=== PATIENT | female | born 1990 | race Caucasian/White ===

== ENCOUNTER → 2017-09-09 16:08 | Outpatient (CLI) | payer BC, SELFPAY ==
--- NOTE | 2017-09-09 | CER_PTH ---
PATIENT: JAMAAL PALACIOS [facility]: [facility] U#:[id number] AGE/SX: 34/F ROOM: RE09/09/[address]: Dr. Papa Blanc MD : 1990 BED: DIS: SPEC #: [id number] RECD: 09/09/17 16:00 STATUS: TONY ZHAO #: [id number] BARTOLO: 09/09/17 00:[address]: Papa lBanc DEPT: SURGICAL PATHOLOGY RECD BY: Waylon Doss Tissues: Uterine cervix, NOS Procedures: Surgery Specimen Level IV HEADER OPERATION: Colposcopy PRE-OP DIAGNOSIS: 06/24/17 ASCUS pap, HPV-HR positive, 24 weeks 3 days TISSUE SUBMITTED: Cervical biopsy 6 o?clock MICROSCOPIC DIAGNOSIS Cervix, 6 o?clock, biopsy: Focal minimal changes suspicious for HPV cytopathic effects. SJ:helen 09/11/17 COMMENT Immunohistochemistry ([id number]) for surrogate HPV marker (p16) supports the above diagnosis. Case has been reviewed in consultation with Dr. Bess who concurs with the above diagnosis. IDC:AM MICROSCOPIC DESCRIPTION Slides are reviewed. GROSS DESCRIPTION Received in fixative is one container labeled with the patient's name and designated cervical biopsy 6 o'clock. The specimen consists of one irregular fragment of light hines soft tissue that measures 0.4 x 0.4 x 0.2 cm. The specimen is totally submitted in one cassette. / SJ:rg 09/10/17 TC:5 CPT: 68414
--- NOTE | 2017-09-09 | IMM_PTH ---
PATIENT: JAMAAL PALACIOS LOC: [facility] U#:[id number] AGE/SX: 34/F ROOM: RE09/09/[address]: Dr. Papa Blanc MD : 1990 BED: DIS: SPEC #: [id number] RECD: 09/11/17 10:38 STATUS: TONY RELaura #: [id number] BARTOLO: 09/09/17 00:[address]: Papa Blanc DEPT: IMMUNOHISTOCHEMISTRY RECD BY: Cathleen Alegria ENTERED: 09/11/17 10:39 SP TYPE: IMMUNO OTHR DR: No Primary Care Phys Tissues: Uterine cervix, NOS Procedures: p16 (initial) KI-67 (add) PHYSICIAN & INSTITUTION [place] [id number] SPECIMEN INFORMATION: Tissue Source: Cervical biopsy at 6 o?clock Clinical Info: 06/24/17 ASCUS pap, HPV-HR positive, 24 weeks 3days Specimen Number: [id number] CPT code: 33152, 98730 METHODOLOGY: Deparaffinized sections of prefer/formalin-fixed tissue or PAP/DQ stained slides are incubated with monoclonal/polyclonal antibodies/oligonucleotide probes. Localization is made via biotin free immunoperoxidase method. Appropriate controls are performed and reacted as expected. Results on target cell population are indicated in the following table: RESULTS: ANTIBODY / CLONE RESULT P16 (E6H4) positive, focal and patchy Ki-67 (30-9) negative These tests were developed and their performance characteristics determined by [facility]. They may not have been cleared or approved by the U.S. Food and Drug Administration. The FDA has determined that such clearance or approval is not necessary. INTERPRETATION: Cervical biopsy at 6 o?clock: Focal changes suspicious for HPV cytopathic effects. SJ:helen 09/14/17
== END ==
PROVIDERS: Visit Provider Obstetrics & Gynecology
DX: O28.2 Abnormal cytological finding on antenatal screening of mother (principal); Z3A.24 24 weeks gestation of pregnancy
CPT/HCPCS: 88305; 88341; 88342

== ENCOUNTER → 2017-10-07 13:22 | Outpatient (CLI) | payer BC, SELFPAY ==
[2017-10-07 14:01] LABS: Mean Corp Hgb Conc 33.3 g/gl (32-36); Mean Corpuscular Hgb 32.1 pg (27.0-32.0); Mean Corpuscular Volume 96.2 fL (81-99); Mean Platelet Vol. 9.7 fl (6.2-12.0); Platelet Count 248 K/mm3 (150-450); RBC Distribution Width CV 13.1 % (11.6-14.6); RBC Distribution Width SD 45.3 fl (35.1-43.9); Red Blood Count 3.43 M/mm3 (4.2-5.4); White Blood Count 9.2 K/mm3 (4.4-11.0)
[2017-10-07 14:03] LABS: Scan Indicated on CBC? Y/N NO
[2017-10-07 14:23] LABS: Glucose Challenge Gest 1H 50g 113 mg/dL (70-140)
== END ==
LOC: WOBLAB 13:24
PROVIDERS: Visit Provider Obstetrics & Gynecology
DX: Z34.83 Encounter for supervision of other normal pregnancy, third trimester (principal)
CPT/HCPCS: 36415; 82950; 85027

== ENCOUNTER → 2017-12-02 17:52 | Outpatient (CLI) | payer BC, SELFPAY ==
[2017-12-02 19:43] LABS: Group B Strep DNA By PCR Negative (Negative); Internal Control PASS; Probe Check PASS; Specimen Processing Control PASS
== END ==
PROVIDERS: Visit Provider Obstetrics & Gynecology
DX: Z36.85 Encounter for antenatal screening for Streptococcus B (principal)
CPT/HCPCS: 87081; 87653

== ENCOUNTER → 2017-12-22 14:10 | Outpatient (CLI) | payer BC, SELFPAY ==
[2017-12-22 14:30] LABS: Hematocrit 36.1 % (37-47); Hemoglobin 12.4 g/dl (12.0-15.0); Mean Corp Hgb Conc 34.3 g/gl (32-36); Mean Corpuscular Hgb 32.1 pg (27.0-32.0); Mean Corpuscular Volume 93.5 fL (81-99); Mean Platelet Vol. 9.9 fl (6.2-12.0); Platelet Count 274 K/mm3 (150-450); RBC Distribution Width CV 12.7 % (11.6-14.6); RBC Distribution Width SD 43.1 fl (35.1-43.9); Red Blood Count 3.86 M/mm3 (4.2-5.4)
[2017-12-22 14:31] LABS: Scan Indicated on CBC? Y/N NO
[2017-12-22 14:36] LABS: International Normalized Ratio 0.9; Prothrombin Time (Protime)PT. 12.2 SECONDS (11.7-14.9)
[2017-12-22 14:37] LABS: Partial Thromboplast Time 26.4 Seconds (24.1-36.2)
[2017-12-22 14:50] LABS: AST(SGOT) 16 U/L (15-37); Alanine Aminotransfer ALT/SGPT 17 U/L (13-56); EST Glomerular Filtration Rate 157 mL/min (>60); Est Glom Filt Rate - Afr Amer 190 mL/min (>60)
== END ==
LOC: WOBLAB 14:11
PROVIDERS: Visit Provider Obstetrics & Gynecology
DX: O13.9 Gestational [pregnancy-induced] hypertension without significant proteinuria, unspecified trimester (principal); Z3A.00 Weeks of gestation of pregnancy not specified
CPT/HCPCS: 36415; 82565; 84450; 84460; 84550; 85027; 85610; 85730

== ENCOUNTER → 2017-12-24 10:52 | Outpatient (CLI) | payer BC, SELFPAY | PROVIDERS: Visit Provider Obstetrics & Gynecology | DX: O13.9 Gestational [pregnancy-induced] hypertension without significant proteinuria, unspecified trimester (principal); Z3A.00 Weeks of gestation of pregnancy not specified | CPT/HCPCS: 81050; 84156 ==

== ENCOUNTER 2018-01-04 07:45 | Inpatient (IN) | payer BC, SELFPAY ==
[2018-01-04] VITALS (18 sets, daily range): BP systolic 126–152; BP diastolic 77–97; PULSE 78–118; RESP 12–19; TEMP 36.6–37.4; O2SAT 95–100; BMI 33.5
[2018-01-04] MEDS: Lactated Ringers 1,000 ML 150 ML IV (08:32)
[2018-01-04] MEDS: Lactated Ringers 1,000 ML 50 ML IV ×3 (08:32→13:10)
[2018-01-04 08:46] LABS: Hematocrit 38.6 % (37-47); Hemoglobin 13.4 g/dl (12.0-15.0); Mean Corp Hgb Conc 34.7 g/gl (32-36); Mean Corpuscular Hgb 32.3 pg (27.0-32.0); Mean Platelet Vol. 10.5 fl (6.2-12.0); Platelet Count 329 K/mm3 (150-450); RBC Distribution Width CV 12.6 % (11.6-14.6); RBC Distribution Width SD 42.6 fl (35.1-43.9); Red Blood Count 4.15 M/mm3 (4.2-5.4); Scan Indicated on CBC? Y/N NO; White Blood Count 15.5 K/mm3 (4.4-11.0)
[2018-01-04] MEDS: Terbutaline 1 MG/ML Vial 0.25 MG SC (09:00)
[2018-01-04] MEDS: fentaNYL-bupivacaine (epidural) 100 ML BAG EPIDURAL (09:46)
[2018-01-04 10:07] LABS: Amphetamine Urine VISTA NEGATIVE (<1000 ng/mL); Barbiturate Urine VISTA POSITIVE (< 200 ng/mL); Benzodiazepine Urine VISTA NEGATIVE (< 200 ng/mL); Cocaine Urine VISTA NEGATIVE (< 300 ng/mL); Ecstacy Urine VISTA NEGATIVE (< 500 ng/mL); Methadone Urine VISTA NEGATIVE (< 300 ng/mL); PCP Urine VISTA NEGATIVE (< 25 ng/mL); THC Urine VISTA POSITIVE (< 50 ng/mL); Vista UDS pH Range 7
[2018-01-04] MEDS: Sodium Citrate/Citric Acid 30 ML UDC PO (13:10)
--- NOTE | 2018-01-04 13:16 | OP.PCM_ITS ---
Operative Report Date of Procedure: 01/04/18 Surgeon: Andrea Calhoun MD, FACOG Data Processing Control Clerk: GORDY Dumont Anesthesia: Doris Collins CRNA Anesthesia: Epidural with Duramorph Pre-op Diagnosis: -Increasing Stress, Postdate , Tobaccoism Post-Op Diagnosis: - -Increasing Stress, Postdate , Tobaccoism, Right Peritubal Cyst Procedure: Primary Low Transverse Cervical Caesarean Section Findings: Viable Male with Apgars of 8/9 in occiput anterior presentation with thick meconium stained amniotic fluid and normal three-vessel placenta with cord around the body, legs multiple times Indication: This is a 27-year-old who presents to labor and delivery in labor at 41+ weeks gestation. During her labor she has had multiple late decelerations on multiple occasions into the 50s. She is only about 3 cm dilated and has no prospect of delivering soon. care has otherwise been uneventful except the patient is a smoker. We discussed options with the patient and she desires that we proceed with section for increasing stress. The patient has been counseled regarding the risk and indications of this procedure including the possibility of bleeding infection and injury to surrounding structures such as bowel bladder. All questions were answered. Procedure: Patient was taken to the operating room where after spinal anesthesia was placed, the patient was prepped and draped in usual sterile fashion and a Gamboa catheter was placed. The abdomen was entered through a Pfannenstiel incision and peritoneum was entered bluntly. After developing a bladder flap on the lower uterine segment a low transverse incision was made on the uterus and head was easily delivered onto the operative field the nose mouth and oropharynx were bulb suctioned. Subsequently a viable male was born with Apgars of 8/9. The infant was noted to cry move all extremities vigorously on the operative field. The umbilical cord was doubly clamped and ligated and infant handed to the nursery personnel who were present for the delivery. Placenta was delivered and noted to be 3 vessels and normal except for thick meconium-stained fluid. Uterus was exteriorized and remaining placental tissue was removed. The uterus was then closed in 2 layers first with running locked 0 Vicryl suture followed by a second imbricating layer with 0 Vicryl suture. 0 Vicryl suture was then used in a horizontal mattress interrupted fashion to affect final hemostasis of the uterine incision line. Normal fallopian tubes and ovaries were visualized and the uterus was returned to the pelvis except for a 1 x 2 cm right peritubal cyst which was excised and sent to pathology. Hemostasis was noted and rectus abdominis muscles were reapproximated in the midline with interrupted Number 0 Vicryl suture in a horizontal mattress fashion. Fascia was closed with running Number 1 PDS Strata fix suture. Subcutaneous tissue was irrigated with copious amouts of saline solution and then closed with running 3-0 Vicryl suture. Skin was closed with 4-0 monocryl suture in a running subcuticular fashion. Steri strips , telfa, and tape were placed across the incision. The patient tolerated the procedure well and was taken to the recovery room in satisfactory condition. Sponge, needle, and instrument counts were all reportedly correct. EBL was less than 500 cc. Ancef 2 gms IV was given prior to the procedure. Spicemen to Pathology: Thick meconium stain placenta and right peritubal cyst for studies. Complications: None
--- NOTE | 2018-01-04 13:17 | DCINST_ITS ---
Discharge Diet: No Restrictions Discharge Activity: May not drive while taking narcotic pain medications., May Shower, May Take a Tub Bath May resume sexual activity in: 4-6 weeks Lifting Restrictions: 20 pounds Additional Activity Instructions:: Nothing in the vagina for 4-6 weeks. You may return to work/school in 6 weeks. Call your doctor if your incision/area has: Continuous Slow Oozing, Sudden Increased Bleeding, Increased Pain/ Swelling, Increased Redness, Foul Smelling Discharge Call your doctor if you observe: Fever of 101 or Higher, Inability to urinate, Inability to have a bowel movement, Using more than one pad per hour Additional Instructions: If you experience any of the following, contact your healthcare provider. * Bleeding that soaks a pad every hour for 2 hours * Unrelieved incision or abdominal pain * Swelling, redness, discharge or bleeding from your incision or episiotomy site * Your incision begins to separate * Problems urinating (including inability to urinate or burning while urinating) . * Visual changes * Severe headache * Flu-like symptoms * Pain or redness in one of both of your breasts * Pain, warmth, tenderness or swelling in your legs, especially the calf area * Frequent nausea and vomiting * Symptoms of depression or anxiety If you experience any of the following, call 911 or go to the nearest Emergency Room. * Chest pain * Problems breathing * Seizure activity * Partial or complete paralysis of a body part, slurred speech, weakness or drooping of the face, or a sudden inability to walk or hold your balance Allergies/Adverse Reactions: Allergies No Known Allergies Allergy (Verified 01/04/18 08:45) Medications to take at Discharge Acetaminophen/Butalbital/Caffe [Fioricet] 2 tablet PO Q4H PRN PRN 01/04/18 Docusate Sodium [Colace] 100 mg PO BID PRN PRN #60 cap 01/04/18 Ferrous Sulfate [Iron] 325 mg PO BID 01/04/18 Oxycodone [Oxyir] 5 mg PO Q6H PRN PRN 7 Days #20 tab 01/04/18 Vits [Prenatabs FA] 1 tablet PO DAILY 01/04/18 The following prescriptions were given: Oxycodone [Oxyir] 5 mg PO Q6H PRN PRN 7 Days #20 tab PRN Reason: Mod-Severe Pain (4-10/10) Docusate Sodium [Colace] 100 mg PO BID PRN PRN #60 cap PRN Reason: Constipation Follow-Up: Call to make an appointment with your doctor for an incision check in 1-2 weeks. You will also need a 6 week post- follow up appointment. Test results from this visit will be discussed in further detail at your follow- up appointment, if applicable. Please Follow Up With: Papa Blanc MD - [phone] When: Call to make an appointment for an incision check in 2 weeks. Primary Care Physician: Care Physician,No Primary [Primary Care Provider] -
[2018-01-04] MEDS: Cefazolin 2 GM in 0.9% Normal Saline 100 ML IV (13:20)
[2018-01-04] MEDS: Oxytocin 30 units/NS 500 ml 30 UNITS/500 ML IV.SOLN 167 UNITS IV (13:35)
[2018-01-04] MEDS: Ketorolac 30 MG/ML Syringe IV ×2 (13:58→19:52)
--- NOTE | 2018-01-04 14:19 | PLAC_PTH ---
PATIENT: JAMAAL PALACIOS LOC: [facility] U#:[id number] AGE/SX: 27/F ROOM: WP005 RE01/04/[address]: Dr. Andrea Calhoun MD : 1990 BED: 1 DIS: 01/06/2018 SPEC #: [id number] RECD: 01/04/18 18:08 STATUS: TONY RELaura #: [id number] BARTOLO: 01/04/18 14:[address]: Andrea Calhoun DEPT: SURGICAL PATHOLOGY RECD BY: Delta Acevedo ENTERED: 01/05/18 09:36 SP TYPE: PLACENTA OTHR DR: No Primary Care Phys Tissues: A - Placenta, NOS B - CYST Procedures: Surgery Specimen Level V HEADER OPERATION: Primary section PRE-OP DIAGNOSIS: 41 weeks gestation, thick MSF, increased stress; right peritubal cyst TISSUE SUBMITTED: A ? Placenta, B ? Right peritubal cyst MICROSCOPIC DIAGNOSIS A. Garcia placenta (589 gm): Umbilical cord ? trivascular with no inflammation. Placental membranes ? mild acute deciduitis and chorionitis and pigmented macrophages consistent with meconium staining. Placental disc ? increased intraparenchymal microcalcifications. B. Right paratubal cyst, excision: Serous cystadenoma. AM:helen 01/06/18 COMMENT Case has been reviewed in consultation with Dr. Capone who concurs with the above diagnosis. IDC:SJ MICROSCOPIC DESCRIPTION Slides are reviewed. GROSS DESCRIPTION A - SPECIMEN: PLACENTA / CLINICAL INFORMATION: A. Weight: 3.346 kg B. Gestational Age: 41 weeks C. Sex: Male PLACENTAL WEIGHT (POST FIXATION): 589 gm PLACENTAL DIMENSIONS: 19 x 18 x 3 cm PLACENTAL SHAPE: Usual ovoid PLACENTAL WEIGHT FOR GESTATIONAL AGE: Within 10-99th percentile MEMBRANES - Present A. Insertion: Marginal B. Site of rupture from edge: 9.5 cm from edge of placental disc C. Color of membrane: Hines-yellow D. Abnormalities: None UMBILICAL CORD - Present A. Color: Hines-cuevas B. Insertion: Slightly eccentric C. Length: 33 cm D. Diameter: 1.5 cm E. Number of vessels: Three F. Abnormalities: None PLACENTAL DISC - Present A. Color of surface: Hines-cuevas B. surface abnormalities: None C. Maternal cotyledons: Intact with minimal tears D. Attached retro placental clot: No clot E. Cut surface: Dark red and spongy F. Lesions: There is a submembranous hematoma on the disc measuring 8 x 5 x 1 cm G. Separate clot: Absent SECTIONS SUBMITTED: 1. Membrane roll and umbilical cord ( end notched) 2. Placental disc, and maternal surfaces 3. Placental disc, and maternal surfaces 4. Placental disc, and maternal surfaces B - Received in fixative is one container labeled with the patient's name and designated right peritubal cyst. The specimen consists of a firm, rubbery fragment of hines-white soft tissue measuring 1.8 x 1.5 x 1.3 cm. Sections reveal gelatinous cut surfaces. The cyst wall measures approximately 0.1 cm in thickness. No papillary projections or excrescences are seen on the external or internal surface. The specimen is totally submitted in two cassettes. AM:helen 01/05/18 TC:2 CPT: 65111 x2
[2018-01-04] MEDS: Ondansetron 4 MG/2 ML Vial IV (18:20)
[2018-01-04] MEDS: 0.9% Saline Lock 10 ML Syringe IV (19:52)
[2018-01-04] MEDS: Lactated Ringers 1,000 ML 100 ML IV (20:40)
[2018-01-04] MEDS: Cefazolin 1 GM/50 ML BAG IV (21:44)
[2018-01-05] VITALS (10 sets, daily range): BP systolic 111–132; BP diastolic 60–88; PULSE 87–105; RESP 15–19; TEMP 36.5–36.9; O2SAT 97–100
[2018-01-05] MEDS: 0.9% Saline Lock 10 ML Syringe IV ×2 (01:51→13:38)
[2018-01-05] MEDS: Ketorolac 30 MG/ML Syringe IV ×3 (01:51→14:06)
[2018-01-05] MEDS: Cefazolin 1 GM/50 ML BAG IV (05:45)
[2018-01-05 06:22] LABS: Hematocrit 21.2 % (37-47); Hemoglobin 7.2 g/dl (12.0-15.0); Mean Corpuscular Hgb 32.1 pg (27.0-32.0); Mean Corpuscular Volume 94.6 fL (81-99); Platelet Count 232 K/mm3 (150-450); RBC Distribution Width CV 12.8 % (11.6-14.6); RBC Distribution Width SD 44.3 fl (35.1-43.9); Red Blood Count 2.24 M/mm3 (4.2-5.4); White Blood Count 14.4 K/mm3 (4.4-11.0)
[2018-01-05] MEDS: Lactated Ringers 500 ML 999 ML IV (06:25)
[2018-01-05 06:34] LABS: Scan Indicated on CBC? Y/N NO
--- NOTE | 2018-01-05 06:44 | PCM.PN.OB ---
Subjective: Patient without complaints. Tolerating diet well. Some nausea yesterday afternoon with vomiting. Urine output marginal overnight. Tolerating diet well now. - Physical Exam Vital Signs AF, VSS Temp Pulse Resp BP Pulse Ox 97.7 F L 91 18 114/71 98 01/05/18 05:45 01/05/18 05:45 01/05/18 05:45 01/05/18 05:45 01/05/18 05:45 Oxygen Delivery Method Room Air Weight: 214 lb 8.156 oz Body Mass Index (BMI) 33.5 Intake and Output for Last 24 Hours 01/03/18 01/04/18 01/05/18 23:59 23:59 23:59 Intake Total 5073 / 5073 2458 / 2458 Output Total 2425 / 2425 250 / 250 Balance 2648 / 2648 2208 / 2208 Laboratory Tests Past 24 Hrs 01/04/18 01/04/18 01/04/18 08:30 08:30 09:00 WBC 15.5 H RBC 4.15 L Hgb 13.4 Hct 38.6 MCV 93.0 MCH 32.3 H MCHC 34.7 RDW 12.6 RDW Differential 42.6 Plt Count 329 MPV 10.5 Urine Opiates Screen Urine Methadone Screen Ur Barbiturates Screen Ur Phencyclidine Scrn Ur Amphetamines Screen U Methamphetamin-MDMA U Benzodiazepines Scrn Urine Cocaine Screen U Cannabinoids Screen Ur Drug Screen Comment Blood Type Cancelled O POSITIVE A1 Antigen Typing Cancelled Rho(D) Type Cancelled Antibody Screen Cancelled NEGATIVE 01/04/18 01/05/18 09:30 05:50 WBC 14.4 H RBC 2.24 L Hgb 7.2 L Hct 21.2 L MCV 94.6 MCH 32.1 H MCHC 34.0 RDW 12.8 RDW Differential 44.3 H Plt Count 232 MPV 10.0 Urine Opiates Screen NEGATIVE Urine Methadone Screen NEGATIVE Ur Barbiturates Screen POSITIVE H Ur Phencyclidine Scrn NEGATIVE Ur Amphetamines Screen NEGATIVE U Methamphetamin-MDMA NEGATIVE U Benzodiazepines Scrn NEGATIVE Urine Cocaine Screen NEGATIVE U Cannabinoids Screen POSITIVE H Ur Drug Screen Comment Blood Type A1 Antigen Typing Rho(D) Type Antibody Screen Wound is clean, dry, intact. Marginal urine output. Hemoglobin noted. Minimal vaginal bleeding. Nondistended. Medical Necessity - Tobacco Use Smoking Status: Light Smoker (<10/day) Assessment/Plan Postoperative day #1 status post primary for increasing stress. Doing well and stable. Suspect decreased output from vomiting yesterday afternoon. Will repeat CBC tomorrow. Continue to monitor closely.
[2018-01-05] MEDS: Lactated Ringers 1,000 ML 100 ML IV ×2 (06:55→11:30)
[2018-01-05] MEDS: oxyCODONE 5 MG Tablet PO ×3 (13:38→21:52)
[2018-01-05] MEDS: Senna/Docusate Sodium 1 Tablet PO (13:39)
--- NOTE | 2018-01-05 16:33 | CASEMGMT ---
Social Work Note Labor and Delivery Unit Verbal notification from nursing staff about maternal use of marijuana in , and positive drug screen results in both MOB and baby at delivery. Chart reviewed. Went to MOB's room around 1000 for assessment, but MOB was and also had visitors in room. Decision made to see MOB tomorrow, 01-06-18, as MOB is not being discharge today. Spoke with RN Allie who reports that would be okay to see MOB tomorrow. -ANN-MARIE Cloud, PROPERTY TECHNICIAN
[2018-01-05] MEDS: Ibuprofen 600 MG Tablet PO (19:48)
[2018-01-06 02:05] VITALS: BP 134/88; PULSE 95; RESP 18; TEMP 36.9
[2018-01-06] MEDS: Ibuprofen 600 MG Tablet PO ×2 (02:06→08:29)
[2018-01-06] MEDS: oxyCODONE 5 MG Tablet PO ×3 (02:07→12:50)
[2018-01-06 06:24] LABS: Absolute Lymphocyte Count 2.65 X10^3/ul (0.83-4.51); Absolute Neutrophil Count 7.1 X10^3/uL (2.0-7.7); Basophil# 0.02 X10^3/uL; Basophil% 0.2 % (0-1); Eosinophil# 0.18 X10^3/uL; Eosinophils% 1.6 % (0-5); Hematocrit 19.6 % (37-47); Hemoglobin 6.6 g/dl (12.0-15.0); Lymphocyte # 2.65 X10^3/ul (4.0); Lymphocyte % 23.9 % (19-41); Mean Corp Hgb Conc 33.7 g/gl (32-36); Mean Corpuscular Hgb 32.2 pg (27.0-32.0); Mean Corpuscular Volume 95.6 fL (81-99); Mean Platelet Vol. 9.7 fl (6.2-12.0); Monocyte# 1.07 X10^3/uL; Monocyte% 9.7 % (0-10); Neutrophil # 7.13 X10^3/uL (2.7-7.7); Neutrophil % 64.3 % (47-70); Platelet Count 227 K/mm3 (150-450); RBC Distribution Width CV 12.6 % (11.6-14.6); RBC Distribution Width SD 43.6 fl (35.1-43.9); Red Blood Count 2.05 M/mm3 (4.2-5.4); White Blood Count 11.1 K/mm3 (4.4-11.0)
[2018-01-06 06:27] LABS: Differential Indicated SCAN CRITERIA MET; POSITIVE COUNT NO; POSITIVE DIFFERENTIAL NO; POSITIVE MORPHOLOGY YES
[2018-01-06 07:18] LABS: Differential Comment SCANNED
[2018-01-06 08:00] VITALS: BP 142/79; PULSE 91; RESP 16; TEMP 36.7; O2SAT 98
--- NOTE | 2018-01-06 08:39 | PCM.PN.OB ---
Subjective: Doing well. No complaints. Pain reasonably controlled. Breast feeding. Bleeding light. Objective: Afeb VSS Hgb stable - Physical Exam General: Alert, Oriented x3, Cooperative, No apparent distress Lungs: Clear to auscultation, Normal air movement Cardiovascular: Regular rate, Regular Rhythm Abdomen: Soft, Non Tender, - - Incision dressing dry Extremities: No edema, No Calf Tenderness Skin: No rashes Neurological: Neuro grossly intact Psych/Mental Status: Normal Affect Comment: Lochia light Vital Signs Temp Pulse Resp BP Pulse Ox 98.1 F 91 16 142/79 H 98 01/06/18 08:00 01/06/18 08:00 01/06/18 08:00 01/06/18 08:00 01/06/18 08:00 Oxygen Delivery Method Room Air Weight: 214 lb 8.156 oz Body Mass Index (BMI) 33.5 Intake and Output for Last 24 Hours 01/04/18 01/05/18 01/06/18 23:59 23:59 23:59 Intake Total 5073 / 5073 3417 / 3417 Output Total 2425 / 2425 1950 / 1950 Balance 2648 / 2648 1467 / 1467 Laboratory Tests Past 24 Hrs 01/06/18 05:50 WBC 11.1 H RBC 2.05 L Hgb 6.6 L Hct 19.6 L MCV 95.6 MCH 32.2 H MCHC 33.7 RDW 12.6 RDW Differential 43.6 Plt Count 227 MPV 9.7 Immature Gran % (Auto) 0.300 Neut % (Auto) 64.3 Lymph % (Auto) 23.9 [place] % (Auto) 9.7 Eos % (Auto) 1.6 Baso % (Auto) 0.2 Absolute Neuts (auto) 7.1 Absolute Lymphs (auto) 2.65 Total Counted Not Reportable Differential Comment SCANNED Medical Necessity - Tobacco Use Smoking Status: Light Smoker (<10/day) Assessment/Plan Doing well. Cleared for discharge home today. Home going instructions and warnings given.
--- NOTE | 2018-01-06 08:48 | PCM.DC.SUM ---
Discharge Date and Diagnosis Date of Admission: 01/04/18 Date of Discharge: 18 - Primary Discharge Diagnosis S/P primary C/S Hospital Course and Treatment Consultations 01/04/18 08:32 Consult: Anesthesia Routine Comment: Reason For Exam: LABOR Operations: - - Primary LTCS Procedures: - - Epidural Summary of Care Provided: The patient is a 27 year old F [admitted at 41+ weeks in early active labor. Due to repetitive decels and remoteness from delivery decision was made to perform primary C/S. Delivery of live male without complication. Post course unremarkable except relatively low hgb level on POD#1. This was stable over 48 hours. Discharged home on POD#2.] Discharge Diet: No Restrictions Discharge Activity: May not drive while taking narcotic pain medications., May Shower, May Take a Tub Bath Return to work on:: 02/24/18 May shower in (days): 0 May resume sexual activity in: 4-6 weeks Ice area for (Minutes): 15 Additional Activity Instructions:: Nothing in the vagina for 4-6 weeks. You may return to work/school in 6 weeks. Call your doctor if your incision/area has: Continuous Slow Oozing, Sudden Increased Bleeding, Increased Pain/ Swelling, Increased Redness, Foul Smelling Discharge Call your doctor if you observe: Fever of 101 or Higher, Inability to urinate, Inability to have a bowel movement, Using more than one pad per hour, Chest pain, Calf discomfort, Uncontrolled pain Remove Dressing in (days):: 2 Cleanse incision/area with: Soap & Water Home Medications: Medications to take at Discharge Acetaminophen/Butalbital/Caffe [Fioricet] 2 tablet PO Q4H PRN PRN 01/04/18 Docusate Sodium [Colace] 100 mg PO BID PRN PRN #60 cap 01/04/18 Ferrous Sulfate [Iron] 325 mg PO BID 01/04/18 Oxycodone [Oxyir] 5 mg PO Q6H PRN PRN 7 Days #20 tab 01/04/18 Vits [Prenatabs FA] 1 tablet PO DAILY 01/04/18 Following Prescrptions Were Given to Patient: Oxycodone [Oxyir] 5 mg PO Q6H PRN PRN 7 Days #20 tab PRN Reason: Mod-Severe Pain (4-10/10) Docusate Sodium [Colace] 100 mg PO BID PRN PRN #60 cap PRN Reason: Constipation Primary Care Physician: Care Physician,No Primary [Primary Care Provider] - Please Follow Up With: Papa Blanc MD - [phone] When: Call to make an appointment for an incision check in 2 weeks. Disposition: Home Minutes spent on discharge:: 15 Patient Condition:: Good Medical Necessity - Tobacco Use Smoking Status: Light Smoker (<10/day) Meaningful Use Info Meaningful Use Diagnoses (Choose all that apply): None applicable
[2018-01-06 08:51] VITALS: BP 148/92; PULSE 85; RESP 16; TEMP 37.1; O2SAT 100
--- NOTE | 2018-01-06 08:51 | DS.PCM_ITS ---
Discharge Date and Diagnosis Date of Admission: 01/04/18 Date of Discharge: 18 - Primary Discharge Diagnosis S/P primary C/S Hospital Course and Treatment Consultations 01/04/18 08:32 Consult: Anesthesia Routine Comment: Reason For Exam: LABOR Operations: - - Primary LTCS Procedures: - - Epidural Summary of Care Provided: The patient is a 27 year old F [admitted at 41+ weeks in early active labor. Due to repetitive decels and remoteness from delivery decision was made to perform primary C/S. Delivery of live male without complication. Post course unremarkable except relatively low hgb level on POD#1. This was stable over 48 hours. Discharged home on POD#2.] Discharge Diet: No Restrictions Discharge Activity: May not drive while taking narcotic pain medications., May Shower, May Take a Tub Bath Return to work on:: 02/24/18 May shower in (days): 0 May resume sexual activity in: 4-6 weeks Ice area for (Minutes): 15 Additional Activity Instructions:: Nothing in the vagina for 4-6 weeks. You may return to work/school in 6 weeks. Call your doctor if your incision/area has: Continuous Slow Oozing, Sudden Increased Bleeding, Increased Pain/ Swelling, Increased Redness, Foul Smelling Discharge Call your doctor if you observe: Fever of 101 or Higher, Inability to urinate, Inability to have a bowel movement, Using more than one pad per hour, Chest pain , Calf discomfort, Uncontrolled pain Remove Dressing in (days):: 2 Cleanse incision/area with: Soap & Water Home Medications: Medications to take at Discharge Acetaminophen/Butalbital/Caffe [Fioricet] 2 tablet PO Q4H PRN PRN 01/04/18 Docusate Sodium [Colace] 100 mg PO BID PRN PRN #60 cap 01/04/18 Ferrous Sulfate [Iron] 325 mg PO BID 01/04/18 Oxycodone [Oxyir] 5 mg PO Q6H PRN PRN 7 Days #20 tab 01/04/18 Vits [Prenatabs FA] 1 tablet PO DAILY 01/04/18 Following Prescrptions Were Given to Patient: Oxycodone [Oxyir] 5 mg PO Q6H PRN PRN 7 Days #20 tab PRN Reason: Mod-Severe Pain (4-10/10) Docusate Sodium [Colace] 100 mg PO BID PRN PRN #60 cap PRN Reason: Constipation Primary Care Physician: Care Physician,No Primary [Primary Care Provider] - Please Follow Up With: Papa Blanc MD - [phone] When: Call to make an appointment for an incision check in 2 weeks. Disposition: Home Minutes spent on discharge:: 15 Patient Condition:: Good Medical Necessity - Tobacco Use Smoking Status: Light Smoker (<10/day) Meaningful Use Info Meaningful Use Diagnoses (Choose all that apply): None applicable
--- NOTE | 2018-01-06 12:00 | CASEMGMT ---
Social Work Assessment Labor and Delivery Unit Date of Referral: 01/05/2018 Time of Referral: 0830 Referred By: verbal notification from nursing staff Date of Intervention: 01/06/2018 Time of Intervention: 1200 Reason for Referral: maternal history of substance use, positive for marijuana in mom and baby at delivery History obtained from: medical record, mother of baby (MOB) Rosa Chaparro, and reported father of baby (FOB) Mitchell Llamas. Household composition: MOB and FOB have recently, a couple of months ago, moved in with MOBs father in [place]. MOB and FOB report home situation is safe and adequate. Patient's parent/guardian status: MOB, age 26, and FOB age 32 have been together for 6 years. No reported or indicated safety concerns in this relationship. baby Robinson Llamas is the first child for both. Medical History: MOB is G2, P0 to 1 after delivery of . No reported concerns with care. Infant born vie caesarian section due to distress and meconium delivery. Baby weighed 7 pounds 12 ounces, Apgars 8 and 9 at one and five minutes of life. MOB plans to breast feed. Educational Status: MOB graduated high school. No reported problems with reading, writing, or learning comprehension. 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 FOB is the water treatment plant engineer for [employer]. Infant Supplies: MOB and FOB reports to have needed infant supplies, including a car seat, pack-n-play, crib, bassinet, clothing, diapers, wipes. Childcare/Caregiver(s): MOB and then when MOB returns to work MOBs father. Transportation: No reported issues, both MOB and FOB drive and have working vehicles. Programs/Agencies Involved: No agency involvement. Children Services/Legal Issues: No reported history nor any legal issues reported. Behavioral Health Issues: MOB denies any history of depression, anxiety, or other emotional health issue. MOB reports 10 year history of smoking marijuana, and that did use during to help with nausea and sleeping. MOB reports researched Zofran for nausea and felt that marijuana was a safe choice to use in . MOB denies alcohol or other illicit drug use. MOB does smoke tobacco, and this is done outside of the home. MOB with positive drug screens 05-27-17 and at delivery on 01-04-18. Baby positive for marijuana at delivery via urine drug screen. Also present for MOB and on 01-04-18 was barbiturates but MOB was prescribed fioricet for headaches. Meconium drug test pending for baby. Family/Social Stressors: MOB and FOB moved a couple of months ago, but reports this has been a good move. No other stressors reported. was unplanned but accepted. Support Systems: MOB reports FOB is a strong support, along with MOBs father whom the family lives with. It is reported there are family members on both sides who will be helpful to the new parents. Depression/Shaken Baby/Safe Sleeping: Educated to depression, importance of self-care, and risk factors for such. Educated to safe sleeping, and MOB states her bed is her own and will not be sharing a bed with the baby. Educated to shaken baby and parents able to give appropriate responses to this topic. ASSESSMENT: FOB present for assessment with MOBs permission. MOB and FOB both cooperative, friendly and nondefensive during assessment. MOB with matter of fact attitude about marijuana usage in , and reports that made the decision to continue use rather than take prescribed Zofran for nausea. MOB reports that will likely be using this substance again in the future. ash worker educated MOB to smoking marijuana while is contraindicated. MOB reports to be surprised by this as all along staff has been supportive and encouraging MOB to breast feed. Discussed that is supported and encouraged, but that if a mother chooses to continue smoking marijuana while than often formula feeding is encouraged. MOB reports to feel it will not be an issues to abstain from marijuana use while . Informed MOB and FOB that when infants are exposed to substances, this warrants a call to children services. Answered questions parents had about what this would entail, educated parents to often seen trends for referrals for marijuana but reinforced that this commercial real estate underwriter is not childrens services. Encouraged parents to work cooperatively with children service and be open and honest. Discussed that both MOB and FOB could be drug tested and that if positive children services will want to see levels coming down rather than staying the same or going up. FOB voiced question as to why he would be tested. Educated that as the father and as a primary caregiver to the baby, children services typically tests both parents. MOB and FOB accepted list of [facility] resources, as well as packet on depression. Options for mental health and substance use treatment included in the packet given. PLAN: MOB and baby discharging home today. Will be calling [facility] Children services. -SAMM Cloud, TRACK SERVICE WORKER
[2018-01-06 12:51] VITALS: BP 148/92; PULSE 85; RESP 16; TEMP 37.1; O2SAT 100
--- NOTE | 2018-01-06 15:40 | CASEMGMT ---
Social Work Note Labor and Delivery 1250 - Called [facility] ([facility]) and spoke with Yolanda at [phone], option 2 and then 2 again. Referral given due to substance exposed infant, positive drug screens at delivery in mom and baby, drug screens as well. [facility] Trace asks that agency be called when family actually leaves the hospital. 1440 - Called [facility] and spoke with Paloma, at number listed above. Informed of mother of baby and baby being discharged home. No other services requested or indicated. Will monitor for meconium drug screen results and report to [facility] as indicated. -ANN-MARIE Cloud, CHILD DAY CARE CENTER WORKER
[2018-01-07 13:06] LABS: Pathology Specimen OB SEE PATHOLOGY REPORT
[2018-01-07 13:06] LABS: Pathology Specimen OB SEE PATHOLOGY REPORT
== END 2018-01-06 13:35 | disposition home or self-care (01) | DRG 766 ==
PROVIDERS: Admitting Provider Obstetrics & Gynecology; Visit Provider Obstetrics & Gynecology
DX: O76 Abnormality in fetal heart rate and rhythm complicating labor and delivery (principal); N83.8 Other noninflammatory disorders of ovary, fallopian tube and broad ligament; O48.0 Post-term pregnancy; O99.334 Smoking (tobacco) complicating childbirth; Z3A.41 41 weeks gestation of pregnancy; Z37.0 Single live birth
CPT/HCPCS: 59025; 59050; 80307; 85025; 85027; 86850; 86900; 88304; 88307; 99218; J7120; A4216; G0378; J2405

== ENCOUNTER 2018-01-15 09:45 | Outpatient (CLI) | payer BC, SELFPAY | END 2018-01-15 10:45 | disposition home or self-care (01) | LOC: WPOUT 10:19 → WP 10:20 | PROVIDERS: Visit Provider Obstetrics & Gynecology | DX: Z39.1 Encounter for care and examination of lactating mother (principal) | CPT/HCPCS: 96152 ==

== ENCOUNTER 2019-01-16 18:25 | Outpatient (CLI) | payer BC, SELFPAY ==
[2019-01-16 18:53] VITALS: BMI 36.9
--- NOTE | 2019-01-22 08:10 | OB.TRI.NOTE ---
History of Present Illness Reason For Visit: RULE OUT LABOR Date of Service: 01/16/19 Final ALEX: 03/16/19 Gestational age: 32 Weeks and 3 Days Allergies No Known Allergies Allergy (Verified 01/04/18 08:45) NST - FHR Rate Baby A Baseline: 125 Variability:: Moderate Accelerations:: 15 x 15 Decelerations:: None NST Reactive:: Yes Uterine Activity:: quiet Impression/Plan Reactive NST for threatened PTL
== END 2019-01-16 19:20 | disposition home or self-care (01) ==
LOC: WPOUT 18:51 → WP 18:52
PROVIDERS: Visit Provider Obstetrics & Gynecology
DX: O60.03 Preterm labor without delivery, third trimester (principal); Z3A.32 32 weeks gestation of pregnancy
CPT/HCPCS: 59025; 59050; 99218; G0378

== ENCOUNTER 2019-01-31 16:21 | Inpatient (IN) | payer BC, SELFPAY ==
--- NOTE | 2019-01-31 14:29 | PCM.HP.STD ---
History of Present Illness Date of Admission: 01/31/19 Chief Complaint: non-reducible ventral hernia The patient is a 28 year old F who is currently 33.3 weeks gravid. She has a known supraumbilical/ventral hernia which has been reducible. She noted a much larger bulge in the area starting yesterday. This was not reducible. She feels nauseated, but has not vomited recently, but did vomit after eating a Burrito at 3AM. She was seen today by Dr. Rosen. I was contacted when her hernia was non reducible. The patient is taking vitamins, She smokes 1/2 PPD, Denies other substances. She has a past surgical history for a C- section and no other significant past medical history Past Medical History Allergies No Known Allergies Allergy (Verified 01/04/18 08:45) Home Medications: Ambulatory Orders Medication Instructions Recorded Acetaminophen/Butalbital/Caffe 2 tablet PO Q4H PRN PRN 01/04/18 [Fioricet] Docusate Sodium [Colace] 100 mg PO BID PRN PRN #60 cap 01/04/18 Ferrous Sulfate [Iron] 325 mg PO BID 01/04/18 Oxycodone [Oxyir] 5 mg PO Q6H PRN PRN 7 Days #20 tab 01/04/18 Vits [Prenatabs FA] 1 tablet PO DAILY 01/04/18 Ibuprofen 600 mg PO Q6H PRN PRN #30 tab 01/06/18 Surgical History: - - C section, removal of foreign body - pencil lead Smoking Status: Light Smoker (<10/day) Review of Systems Constitutional: Denies: Chills, Fever, Weight Change HEENT: Denies: Head Aches, Sinus Congestion, Sinus Drainage Cardiovascular: Denies: Chest Pain, Palpitations Respiratory: Denies: Cough, Shortness of breath at rest, Sputum production Gastrointestinal: Reports: Abdominal Pain, Nausea, Vomiting Genitourinary: Denies: Dysuria Musculoskeletal: Denies: Joint Pain, Joint Tenderness Skin: Denies: Rash, Wounds Neurological: Denies: Numbness, Tingling, Focal weakness Psychiatric: Denies: Anxiety, Depression, Homicidal Ideations, Suicidal Ideations Hematologic/ Lymphatic: Denies: Easy Bruising, Easy Bleeding VTE Information - Inpt Only VTE Present on Admission: No VTE Mechan Device Prophylaxis: SCD's VTE Pharm Prophylaxis ordered?: No Subjective: pain at hernia site - Physical Exam General: Alert, Oriented x3, Cooperative Lungs: Clear to auscultation, Normal air movement Cardiovascular: Regular Rhythm, Tachycardic Abdomen: Bowel Sounds Present, Soft, Tender - at incision - non reducible. FHT 134 per OB nursing Body Mass Index (BMI) 36.9 Assessment/Plan incarcerated/possible strangulated ventral hernia I plan to perform an emergency ventral hernia repair. I discussed with the patient and her family the risks, benefits, possible complications and alternatives including risks to the unborn child. We discussed that delaying surgery if bowel is compromised or even infarcted omentum would be a higher risk for labor than surgery by itself. The patient consents to the procedure. The patient will be admitted to the OB unit and have heart tone monitoring post operatively.
[2019-01-31 14:50] VITALS: BP 130/79; PULSE 101; RESP 16; TEMP 37; O2SAT 99; BMI 36.6
[2019-01-31 15:15] LABS: Absolute Lymphocyte Count 2.45 X10^3/uL (0.83-4.51); Absolute Neutrophil Count 10.4 X10^3/uL (2.0-7.7); Basophil# 0.02 X10^3/uL; Basophil% 0.1 % (0-1); Eosinophil# 0.14 X10^3/uL; Hemoglobin 12.1 g/dL (12.0-15.0); Lymphocyte # 2.45 X10^3/ul (4.0); Lymphocyte % 17.3 % (19-41); Mean Corp Hgb Conc 34.6 g/dL (32-36); Mean Corpuscular Volume 92.6 fL (81-99); Mean Platelet Vol. 10.2 fl (6.2-12.0); Monocyte# 1.07 X10^3/uL; Monocyte% 7.6 % (0-10); NRBC Flagged by Analyzer 0 % (0-5); Neutrophil # 10.38 X10^3/uL (2.7-7.7); Neutrophil % 73.2 % (47-70); Platelet Count 287 K/mm3 (150-450); RBC Distribution Width CV 12.5 % (11.6-14.6); RBC Distribution Width SD 42.6 fl (35.1-43.9); Red Blood Count 3.78 M/mm3 (4.2-5.4); White Blood Count 14.2 K/mm3 (4.4-11.0)
[2019-01-31 15:29] LABS: Anion Gap 7 (5-15); BUN 2 mg/dL (7-18); BUN/Creat Ratio 4.1 RATIO (10-20); Calcium,Total 8.8 mg/dL (8.5-10.1); Chloride 108 mmol/L (98-107); Creatinine, Serum 0.49 mg/dL (0.55-1.02); EST Glomerular Filtration Rate 162 mL/min (>60); Est Glom Filt Rate - Afr Amer 196 mL/min (>60); Estimated Creatinine Clearance 161.44 ml/min; Glucose 82 mg/dL (74-106); Sodium Level 139 mmol/L (136-145)
--- NOTE | 2019-01-31 15:40 | HERN_PTH ---
PATIENT: JAMAAL PALACIOS LOC: [facility] U#:[id number] AGE/SX: 28/F ROOM: WP011 RE01/31/[address]: LAN: 1990 BED: 1 DIS: 02/01/2019 SPEC #: [id number] RECD: 02/01/19 07:37 STATUS: TONY ZHAO #: [id number] BARTOLO: 01/31/19 15:[address]: Theo Wells DEPT: SURGICAL PATHOLOGY RECD BY: Delta Acevedo ENTERED: 02/01/19 09:06 SP TYPE: Hernia OTHR DR: Dr. Jolene Broussard-MD Mikey No Primary Care Phys Tissues: HERNIA Procedures: Surgery Specimen Level II HEADER OPERATION: Open ventral hernia repair PRE-OP DIAGNOSIS: Incarcerated ventral hernia TISSUE SUBMITTED: Hernia sac MICROSCOPIC DIAGNOSIS Hernia sac: Pieces of fibroadipose and fibroconnective tissue, consistent with hernia sac. SJ:helen 02/02/19 MICROSCOPIC DESCRIPTION Slides are reviewed. GROSS DESCRIPTION Received in fixative is one container labeled with the patient's name and designated hernia sac. The specimen consists of two irregular fragments of glistening hines-pink fibrofatty tissue that in aggregate measure 9.5 x 6 x 1 cm. Serial sections do not reveal mass lesions. Rope Cutter sections are submitted in one cassette. / AM:helen 02/01/19 TC:5 CPT: 59454
[2019-01-31] MEDS: Cefazolin 2 GM in 0.9% Normal Saline 100 ML IV (15:53)
[2019-01-31] MEDS: Bupivacaine Mpf 0.5% 30 ML VIAL (16:15)
--- NOTE | 2019-01-31 16:27 | OP.PCM_ITS ---
Report of Operation Date of Procedure: 01/31/19 Pre-Operative Diagnosis: incarcerated ventral hernia Post-Operative Diagnosis: incarcerated ventral hernia - reduced post induction, 3cm defect` Surgery/Procedure Performed:: emergency venrtral hernia repair clinical data management manager: None Type of Anesthesia:: General Anesthesiologist: Ant Cagle - ASA2E Specimen's removed: hernia sac Estimated Blood Loss (mL): minimal Fluids Replaced: 1200 Description of Procedure: The patient was brought to the operating suite. Sign in was performed verifying patient, site, procedure, position, and DVT prophylaxis with SCDs. Patient received 2 g Ancef antibiotic prophylaxis. the patient is currently 33 weeks gravid. The patient had preoperative intraoperative and postoperative heart tone monitoring which was stable at a heart of approximately 135-140 throughout the case. Following induction of general anesthetic, gentle pressure was placed on the hernia and it was now able to be reduced. The patient?s abdomen was prepped and draped in the usual fashion. Timeout was performed verifying patient, site, position. A linear incision was made and dissection carried down to the hernia defect located in the supraumbilical area. Dissection was continued around the hernia sac and the hernia sac was opened . There was omentum adherent within the hernia sac. The hernia sac was dissected completely free from the subcutaneous fat down to the level of the fascial defect . The fascial defect was then closed with interrupted 0 Prolene [id number] sutures. Subcutaneous fat was loosely approximated with interrupted 3-0 Vicryl suture. Skin was closed with devaughn. Steri-Strips and bandages were applied. The patient was brought to recovery room in stable condition. - Admit VTE Documentation VTE Present on Admission: No VTE Mechan Device Prophylaxis: SCD's VTE Pharm Prophylaxis ordered?: No
[2019-01-31 16:37] VITALS: BP 130/79; BP 138/91; PULSE 104; RESP 20; TEMP 36.6; O2SAT 100
[2019-01-31 16:45] VITALS: BP 130/79; BP 134/87; PULSE 100; RESP 20; O2SAT 100
[2019-01-31 17:00] VITALS: BP 130/79; BP 157/92; PULSE 102; RESP 20; O2SAT 102
[2019-01-31 17:15] VITALS: BP 130/79; BP 133/84; PULSE 90; RESP 18; O2SAT 98
[2019-01-31 17:25] VITALS: BP 130/79; BP 143/82; PULSE 88; RESP 18; TEMP 36.8; O2SAT 97
[2019-01-31] MEDS: Lactated Ringers 1,000 ML 70 ML IV ×2 (17:47→20:11)
[2019-01-31 18:58] VITALS: BMI 36.8
[2019-01-31] MEDS: HYDROmorphone 0.5 MG/0.5 ML SYRINGE IV ×2 (19:38→23:31)
[2019-01-31] MEDS: oxyCODONE 5 MG Tablet PO (21:24)
[2019-01-31] MEDS: Ondansetron 4 MG/2 ML Vial IV (21:24)
[2019-02-01] MEDS: Ondansetron 4 MG/2 ML Vial IV (02:44)
[2019-02-01] MEDS: HYDROmorphone 0.5 MG/0.5 ML SYRINGE IV (02:46)
[2019-02-01] MEDS: oxyCODONE 5 MG Tablet PO ×3 (04:53→16:25)
[2019-02-01 04:55] LABS: Absolute Lymphocyte Count 2.43 X10^3/uL (0.83-4.51); Absolute Neutrophil Count 9.8 X10^3/uL (2.0-7.7); Basophil# 0.02 X10^3/uL; Basophil% 0.1 % (0-1); Eosinophil# 0.14 X10^3/uL; Hematocrit 32.9 % (37-47); Hemoglobin 11.3 g/dL (12.0-15.0); Lymphocyte # 2.43 X10^3/ul (4.0); Lymphocyte % 18.2 % (19-41); Mean Corp Hgb Conc 34.3 g/dL (32-36); Mean Corpuscular Hgb 32.2 pg (27.0-32.0); Mean Corpuscular Volume 93.7 fL (81-99); Monocyte# 0.92 X10^3/uL; Monocyte% 6.9 % (0-10); NRBC Flagged by Analyzer 0 % (0-5); Neutrophil # 9.76 X10^3/uL (2.7-7.7); Neutrophil % 73.3 % (47-70); Platelet Count 254 K/mm3 (150-450); RBC Distribution Width CV 12.7 % (11.6-14.6); RBC Distribution Width SD 43.5 fl (35.1-43.9); Red Blood Count 3.51 M/mm3 (4.2-5.4); White Blood Count 13.3 K/mm3 (4.4-11.0)
[2019-02-01 05:16] LABS: Anion Gap 8 (5-15); BUN 2 mg/dL (7-18); BUN/Creat Ratio 4.6 RATIO (10-20); Calcium,Total 8.2 mg/dL (8.5-10.1); Chloride 108 mmol/L (98-107); Creatinine, Serum 0.43 mg/dL (0.55-1.02); EST Glomerular Filtration Rate 186 mL/min (>60); Est Glom Filt Rate - Afr Amer 225 mL/min (>60); Estimated Creatinine Clearance 183.97 ml/min; Glucose 81 mg/dL (74-106); Sodium Level 141 mmol/L (136-145)
--- NOTE | 2019-02-01 06:35 | DCINST_ITS ---
Discharge Diet: - - liquids until having bowel movements Discharge Activity: Return to Normal Activity, May Drive - when you are no longe r taking narcotic pain medications., May Shower - with the bandage in place 1-2 days after surgery. Lifting Restrictions: 20 pounds for 8 weeks. Additional Activity Instructions:: Climbing stairs is fine, walking is encouraged. Sitting in bed may be uncomfortable. Sitting up using your lateral muscles (sitting up sideways) is usually more comfortable. Do not drive, work heavy equipment of sign legal documents for 24 hours. If your hernia repair was an ingunial repair, you may have scrotal swelling, an ice pack and/or athletic support can provide more comfort. Pain medications may cause nausea, you should typically eat light foods as you take your pain medications. Pain medications may also cause constipation. If you have difficulty with this, discuss with your doctor. Call your doctor if your incision/area has: Continuous Slow Oozing, Sudden Increased Bleeding, Increased Pain/ Swelling, Increased Redness, Foul Smelling Discharge Call your doctor if you observe: Fever of 101 or Higher Suture Line Care: Avoid Pulling/Pushing, Avoid Pinching/Bending Additional Dressing/Incision Instructions:: Leave the operative bandage on for 2-3 days. When you remove the bandage, leave the steri-strips on place until your follow up appointment or they fall off. Allergies/Adverse Reactions: Allergies No Known Allergies Allergy (Verified 01/31/19 14:48) Medications to take at Discharge Acetaminophen/Butalbital/Caffe [Fioricet] 2 tablet PO Q4H PRN PRN 01/04/18 Vits [Prenatabs FA] 1 tablet PO DAILY 01/04/18 RX: Oxycodone [Oxyir] 5 - 10 mg PO Q4H PRN PRN 5 Days #12 tab 02/01/19 The following prescriptions were given: RX: Oxycodone [Oxyir] 5 - 10 mg PO Q4H PRN PRN 5 Days #12 tab PRN Reason: Severe Pain (6-10/10) Prescription Printed Primary Care Physician: Care Physician,No Primary [Primary Care Provider] - Test Results: Test results from this visit will be discussed in further detail at your follow- up appointment, if applicable. Please Follow Up With: Theo Wells MD - [phone] When: Plan to have a follow up appointment in 7 days. Call to schedule.
--- NOTE | 2019-02-01 07:51 | PCM.CONS.B ---
- Consult Date of Consult: 02/01/19 - Reason for Consult 28-year-old 3 para 1 at 33.6 weeks gestation status post repair of a supra umbilical hernia by general surgeon Dr. Dorsey. [facility] for monitoring. This morning patient reports is feeling well pain is rated a 5 out of 10. Patient denies any flatus at this time. Denies any nausea or vomiting. Is ambulating without difficulty. Patient denies any vaginal bleeding, leaking fluid, contractions. Patient reports good movement. Exam: General: Female in no apparent distress Abdomen: Gravid mildly tender to palpation. Bowel sounds hypoactive. Dressing with minimal serous discharge. heart rate: 125 moderate variability positive accelerations no decelerations toco: No contractions -reactive category 1 a/p: 28yo @ 33.6 wks POD#1 s/p Repair of supraumbilical hernia Continue to monitor Per gen surgery patient is not allowed to have regular diet until passing flatus Continue clear fluid at this time Continuous heart rate and toco Instructions given for discharge may DC home when passing flatus and tolerating regular diet
[2019-02-01] MEDS: Acetaminophen 500 MG Tablet 1000 MG PO (08:04)
--- NOTE | 2019-02-01 15:17 | NURSING ---
Called to notify him of pt being unable to pass gas. Pt attempted apple juice, soda, and prune juice x 2. Pt has been ambulating in halls. Pt using Oxyir and Tyl 1 gram for incisional pain management. stating pt may be discharged to home at this time. stating pt may laxative if needed.
--- NOTE | 2019-02-01 19:40 | DS.PCM_ITS ---
Discharge Date and Diagnosis Date of Admission: 01/31/19 Date of Discharge: 02/01/19 - Primary Discharge Diagnosis acutely incarcerated ventral hernia Hospital Course and Treatment Operations: herniorrhaphy, - - Primary LTCS Summary of Care Provided: The patient is a 28 year old F 33-1/3 week gravid patient who noted a 24-hour history of a significantly enlarged nonreducible supraumbilical hernia. The patient had no obstructive symptoms. Due to concern of unreducible ability and likely omental infarction with the lesser concern of nonclinical obstructed bowel within the hernia, she was brought for urgent operative repair. Following induction of anesthesia the hernia constantly reduced intra-abdominally without difficulty. The hernia sac was excised and simple repair performed. heart tones were monitored preoperative intraoperative and postoperative and were stable throughout. The patient did well postoperatively. She had not passed flatus but is otherwise clinically doing well and was discharged home on postoperative day 1. - Physical Exam Vital Signs Temp Pulse Resp BP Pulse Ox 98.3 F 88 18 143/82 H 97 01/31/19 17:25 01/31/19 17:25 01/31/19 17:25 01/31/19 17:25 01/31/19 17:25 Oxygen Flow Rate (L/min) 3 Oxygen Delivery Method Simple Mask Weight: 103.419 kg Body Mass Index (BMI) 36.8 Intake and Output for Last 24 Hours 01/30/19 01/31/19 02/01/19 23:59 23:59 23:59 Intake Total 1700 / 1700 2891 / 2891 Output Total 500 / 500 1000 / 1000 Balance 1200 / 1200 1891 / 1891 Laboratory Tests Past 24 Hrs 02/01/19 02/01/19 04:43 04:43 WBC 13.3 H RBC 3.51 L Hgb 11.3 L Hct 32.9 L MCV 93.7 MCH 32.2 H MCHC 34.3 RDW Std Deviation 43.5 RDW Coeff of Judi 12.7 Plt Count 254 MPV 10.0 Immature Gran % (Auto) 0.500 Neut % (Auto) 73.3 H Lymph % (Auto) 18.2 L [place] % (Auto) 6.9 Eos % (Auto) 1.0 Baso % (Auto) 0.1 Absolute Neuts (auto) 9.8 H Absolute Lymphs (auto) 2.43 Nucleated RBC % 0 Sodium 141 Potassium 3.0 L Chloride 108 H Carbon Dioxide 25.0 Anion Gap 8 BUN 2 L Creatinine 0.43 L Estim Creat Clear Calc 183.97 Est GFR (MDRD) Af Amer 225 Est GFR (MDRD) Non-Af 186 BUN/Creatinine Ratio 4.6 L Glucose 81 Calcium 8.2 L Discharge Diet: - - liquids until having bowel movements Discharge Activity: Return to Normal Activity, May Drive - when you are no longer taking narcotic pain medications., May Shower - with the bandage in place 1-2 days after surgery. Additional Activity Instructions:: Climbing stairs is fine, walking is encouraged. Sitting in bed may be uncomfortable. Sitting up using your lateral muscles (sitting up sideways) is usually more comfortable. Do not drive, work heavy equipment of sign legal documents for 24 hours. If your hernia repair was an ingunial repair, you may have scrotal swelling, an ice pack and/or athletic support can provide more comfort. Pain medications may cause nausea, you should typically eat light foods as you take your pain medications. Pain medications may also cause constipation. If you have difficulty with this, discuss with your doctor. Call your doctor if your incision/area has: Continuous Slow Oozing, Sudden Increased Bleeding, Increased Pain/ Swelling, Increased Redness, Foul Smelling Discharge Call your doctor if you observe: Fever of 101 or Higher Suture Line Care: Avoid Pulling/Pushing, Avoid Pinching/Bending Additional Dressing/Incision Instructions:: Leave the operative bandage on for 2-3 days. When you remove the bandage, leave the steri-strips on place until your follow up appointment or they fall off. Home Medications: Medications to take at Discharge Acetaminophen/Butalbital/Caffe [Fioricet] 2 tablet PO Q4H PRN PRN 01/04/18 Vits [Prenatabs FA] 1 tablet PO DAILY 01/04/18 RX: Oxycodone [Oxyir] 5 - 10 mg PO Q4H PRN PRN 5 Days #12 tab 02/01/19 Following Prescrptions Were Given to Patient: RX: Oxycodone [Oxyir] 5 - 10 mg PO Q4H PRN PRN 5 Days #12 tab PRN Reason: Severe Pain (6-03/31) Prescription Printed Primary Care Physician: Care Physician,No Primary [Primary Care Provider] - Please Follow Up With: Theo Wells MD - [phone] When: Plan to have a follow up appointment in 7 days. Call to schedule. Medical Necessity - Tobacco Use Smoking Status: Current every day smoker Tobacco Use: Cigarettes Meaningful Use Info Meaningful Use Diagnoses (Choose all that apply): None applicable
== END 2019-02-01 16:30 | disposition home or self-care (01) | DRG 818 ==
LOC: SDC 18:09 → WP 02-01 08:16
PROVIDERS: Admitting Provider Surgery; Referring Provider Surgery
PROC: 0WQF0ZZ Repair Abdominal Wall, Open Approach (ICD-10-PCS; principal; 2019-01-31 15:25)
DX: O99.613 Diseases of the digestive system complicating pregnancy, third trimester (principal); K43.6 Other and unspecified ventral hernia with obstruction, without gangrene; O99.333 Smoking (tobacco) complicating pregnancy, third trimester; Z3A.33 33 weeks gestation of pregnancy
CPT/HCPCS: 59025; 59050; 80048; 85025; 88302; 99218; J7120; G0378; J2405

== ENCOUNTER 2019-03-09 05:15 | Inpatient (IN) | payer BC, SELFPAY ==
[2019-03-09] VITALS (20 sets, daily range): BP systolic 116–150; BP diastolic 52–114; PULSE 74–94; RESP 14–18; TEMP 36.2–36.9; O2SAT 95–99; BMI 37.1
[2019-03-09] MEDS: Lactated Ringers 1,000 ML 999 ML IV (05:35)
[2019-03-09 06:14] LABS: Absolute Neutrophil Count 7.5 X10^3/uL (2.0-7.7); Eosinophil# 0.13 X10^3/uL; Eosinophils% 1.2 % (0-5); Hematocrit 34.6 % (37-47); Hemoglobin 12.1 g/dL (12.0-15.0); Lymphocyte % 22.3 % (19-41); Mean Corpuscular Hgb 32.1 pg (27.0-32.0); Mean Corpuscular Volume 91.8 fL (81-99); Monocyte# 0.98 X10^3/uL; Monocyte% 8.8 % (0-10); NRBC Flagged by Analyzer 0 % (0-5); Neutrophil # 7.54 X10^3/uL (2.7-7.7); Neutrophil % 67.3 % (47-70); Platelet Count 283 K/mm3 (150-450); RBC Distribution Width CV 13.2 % (11.6-14.6); RBC Distribution Width SD 43.2 fl (35.1-43.9); Red Blood Count 3.77 M/mm3 (4.2-5.4); White Blood Count 11.2 K/mm3 (4.4-11.0)
[2019-03-09] MEDS: Lactated Ringers 1,000 ML 150 ML IV (06:35)
[2019-03-09] MEDS: Sodium Citrate/Citric Acid 30 ML UDC PO (07:16)
[2019-03-09] MEDS: Cefazolin 2 GM in 0.9% Normal Saline 100 ML IV (07:24)
--- NOTE | 2019-03-09 08:07 | FALS_PTH ---
PATIENT: JAMAAL PALACIOS LOC: WP U#:[id number] AGE/SX: 28/F ROOM: WP009 RE03/09/[address]: Dr. Tyra Rosen MD : 1990 BED: 1 DIS: 03/12/2019 SPEC #: [id number] RECD: 03/09/19 13:10 STATUS: TONY ZHAO #: [id number] BARTOLO: 03/09/19 08:[address]: Tyra Rosen DEPT: SURGICAL PATHOLOGY RECD BY: Cathleen Alegria ENTERED: 03/09/19 14:23 SP TYPE: FALL TUBES OTHR DR: No Primary Care Phys Tissues: Fallopian tube Procedures: Surgery Specimen Level II HEADER OPERATION: Tubal ligation PRE-OP DIAGNOSIS: Sterilization TISSUE SUBMITTED: Fallopian tubes, left tie MICROSCOPIC DIAGNOSIS Bilateral fallopian tubes, salpingectomy: Bilateral fallopian tubes including fimbrial ends, no pathologic diagnosis. LUIS FERNANDO:helen 03/10/19 MICROSCOPIC DESCRIPTION Slides are reviewed. GROSS DESCRIPTION Received is one container labeled with the patient's name and designated bilateral fallopian tubes, left with tie. The specimen consists of bilateral fallopian tubes including fimbrial ends. The right fallopian tube measures 8.5 cm in length and 0.5 to 1 cm in diameter and the left fallopian tube measures 7.5 cm in length and 0.5 to 1 cm in diameter. The fimbrial ends are identified. Sections reveal unremarkable cut surfaces. Battery Filler sections are submitted in two cassettes as follows: 1 - right fallopian tube, 2??left fallopian tube. / SJ:rg 03/09/19 TC:4 CPT: 50397 x2
--- NOTE | 2019-03-09 08:30 | OP.PCM_ITS ---
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 She was prepped and draped in the dorsal supine position with a leftward tilt. A Pfannenstiel skin incision was made approximately 2 cm above the symphysis pubis and carried through to underlying layer fascia with the scalpel. The fascia was incised incised in the midline and extended laterally with the Hoffman scissors. The fascia was dissected off the rectus muscles with blunt and sharp dissection. The rectus muscles were in the midline and the peritoneum was entered bluntly. It was noted that there was a large vessel on the left side of the incision under the fascia that was bleeding. This was isolated and was grasped with a Em clamp. A ajsqtf-is-jrhlv suture was placed around it. There is not much stretch to the rectus muscle so they were divided 1.5 cm on each side with the Bovie. The other and was Bovie cauterized. A similar vessel was identified on the right side and it was Bovie cauterized for hemostasis. The peritoneal incision was stretched and the bladder blade was placed. The uterine incision was made in a low transverse fashion with the scalpel and extended superiorly and inferiorly with blunt dissection. The amniotic membranes were ruptured bluntly and clear amniotic fluid returned. The 's head was brought to the incision in the flexed position and delivered without difficulty. The remainder of the infant was delivered with gentle traction and fundal pressure in the standard fashion. The mouth and nares were bulb suctioned. The cord was clamped and cut as the infant was stimulated. Cord clamping was delayed. The was handed off to the waiting nursing staff. The placenta was delivered with fundal massage and gentle traction in the standard fashion. The uterus was exteriorized and cleared of all clots and debris. The cervix was dilated with a ring forcep. The uterine incision was closed with #1 Vicryl in a running locked fashion. A second layer of the same suture was used in an imbricating fashion. The incision was examined and was found to be hemostatic. At this point the left fallopian tube was identified and followed out to fimbriated end. The LigaSure device was used to clamp along the antimesenteric portion of the tube, sealer and transected. This was performed to the insertion of the tube at the corneal edge of the uterus. I then clamped across the tube with the LigaSure, sealed it and transected it. It was hemostatic. The same procedure was performed on the contralateral side. Excellent hemostasis was noted. Both tubes were handed off to send to pathology. The uterus was placed back into the peritoneal cavity and hemostasis was again confirmed. The rectus muscles were examined and any bleeding was Bovie cauterized. The parietal peritoneum and rectus muscles were closed en bloc with an 0 Vicryl running suture. The surgical teams outer gloves were then changed. The rectus fascia was examined and any bleeding was Bovie cauterized and the rectus fascia was closed with 0 PDS suture in a running standard fashion. Some Surgicel powder was placed over the rectus muscles and then in the subcutaneous tissue as well. The subcutaneous tissue was examining and any bleeding was Bovie cauterized. The subcutaneous tissue was reapproximated with 3-0 Vicryl suture. The skin was closed in a subcuticular fashion by the LIVING NURSE with me present in the labor and delivery suite. I performed the remainder of the procedure with assistance. All sponge, lap, and needle counts were correct. The patient was taken to her room for recovery in a stable condition. Amniotic Membrane Rupture Type: Artificial Amniotic Fluid Description: Clear Placenta Disposition: [facility] Specimen(s) sent to pathology: bilateral fallopian tubes Drain: [place] to straight drain Cord Entanglement: Around neck x 1, loose Nuchal Cord Compression: Without compression Cord Vessel Description: 3 Vessels Esitmated Blood Loss (ml): 1000 Gender: Female (1 minute): 8 (5 minute): 9 Delayed cord clamping: No Antibiotic Given: Ancef 2 grams IV x1 Complications: None - Admit VTE Documentation VTE Present on Admission: No VTE Mechan Device Prophylaxis: SCD's VTE Pharm Prophylaxis ordered?: Yes
[2019-03-09] MEDS: Oxytocin 30 units/NS 500 ml 30 UNITS/500 ML IV.SOLN 167 UNITS IV (08:50)
[2019-03-09] MEDS: Ondansetron 4 MG/2 ML Vial IV ×2 (10:27→14:32)
--- NOTE | 2019-03-09 11:30 | NURSING ---
Pt walked around the room and sat up in the chair. Tolerated well.
[2019-03-09] MEDS: Lactated Ringers 1,000 ML 100 ML IV (11:50)
[2019-03-09] MEDS: Ketorolac 30 MG/ML Syringe IV ×2 (14:32→20:04)
--- NOTE | 2019-03-09 14:50 | PCM.HP.BLA ---
History and Physical Date of Admission: 03/09/19 Pre-Op History and Physical ? HPI: The patient is a 28 year old female presenting for pre-operative visit. She is scheduled for? section and bilateral salpingectomy, for?39 weeks , previous section, sterilization request/ on?03/09/19. ??Procedure discussed along with risks, benefits and complications. ?Other alternatives discussed for management. Consent form signed??Yes.? PAST?MEDICAL?HISTORY PAST MEDICAL HISTORY Diagnosis Date ? Abdominal wall hernia ? ? per patient ? History of HPV infection ? ? Tobacco use ? ? ? PAST?SURGICAL?HISTORY PAST SURGICAL HISTORY Procedure Laterality Date ? SECTION HX ? ? ? x 1 ? PAST SURGICAL HISTORY OF ? 1992 ? repaired right club foot ? PAST SURGICAL HISTORY OF ? 2005 ? removed pencil lead from right knee ? ? CURRENT?MEDICATIONS Current Outpatient Medications Medication Sig Dispense Refill ? loratadine-pseudoephedrine ER (CLARITIN-D 12 HOUR) 5-120 mg per tablet Take 1 tablet by mouth twice daily. 12 tablet 0 ? Mtjoazzx-Ur-Toi-Fe-FA ( VITAMIN) tab Take 1 tablet by mouth. ? ? ? No current facility-administered medications for this visit.? ? ALLERGIES:?Patient has no known allergies. ? PERSONAL HISTORY:? 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 ?Employer: [employer] ??Social Needs ?Financial resource strain: Not on file ?Food insecurity: ?Worry: Not on file ?Inability: Not on file ?Transportation needs: ?Medical: Not on file ?Non-medical: Not on file ??Tobacco Use ?Smoking status: Current Every Day Smoker ?Packs/day: 0.50 ?Years: 8.00 ?Pack years: 4 ?Smokeless tobacco: Never Used ??Substance and Sexual Activity ?Alcohol use: Yes ?Comment: rarely, not while ?Drug use: Not Currently ?Types: Marijuana ?Sexual activity: Yes ?Partners: Male ??Lifestyle ?Physical activity: ?Days per week: Not on file ?Minutes per session: Not on file ?Stress: Not on file ??Relationships ?Social connections: ?Talks on phone: Not on file ?Gets together: Not on file ?Attends episcopal service: Not on file ?Active member of club or organization: Not on file ?Attends meetings of clubs or organizations: Not on file ?Relationship status: Not on file ?Intimate partner violence: ?Fear of current or ex partner: Not on file ?Emotionally abused: Not on file ?Physically abused: Not on file ?Forced sexual activity: Not on file ??Other Topics ?Concerns: ? Service: No ?Blood Transfusions: No ?Caffeine Concern: No ?Occupational Exposure: No ?Hobby Hazards: Yes ?Sleep Concern: No ?Stress Concern: No ?Weight Concern: No ?Special Diet: No ?Back Care: Not Asked ?Exercise: Not Asked ?Bike Helmet: Not Asked ?Seat Belt: Yes ?Self-Exams: No ??Social History Narrative ?Not on file ? FAMILY HISTORY:? FAMILY?HISTORY FAMILY HISTORY Problem Relation Age of Onset ? Hypertension Mother ? ? Heart Mother ?stent, CABG age 53 ? Cancer Mother ?Lung cancer ? Stroke Maternal Grandmother ? ? Heart Maternal Grandfather ? ? Cancer Paternal Grandfather ? ? Cancer Paternal Grandmother ?Esophageal Cancer ? REVIEW OF SYMPTOMS: GENERAL: denies fevers or chills ENDOCRINOLOGY: has not been on steroids Cardiology : denies palpitations or chest pain Respiratory: denies SOB or cough Hematology: denies history of prolonged bleeding or easy bruising or VTE Allergy: Denies history of personal or family history of allergy to anesthesia ? ? PHYSICAL EXAMINATION: ? VITALS:?Blood pressure 128/78, weight 232 lb (105.2 kg), last menstrual period 06/09/2018, unknown if currently . ? GENERAL:??The patient is well nourished, well hydrated in no acute distress. ?, The patient is oriented to time, place, and person. NECK:?Supple. No lynphadenopathy, normal thyroid, no thyromegaly. LUNGS:?Clear to auscultation bilaterally. no wheezes, rhonchi or rales HEART:?Regular rate and rhythm, Normal heart sounds and No murmurs or gallops abd- soft, nontender, gravid ext- 2+ Edema ? IMPRESSION:?39 0/7 weeks on 03/09/19, previous c/s and sterilization request ? PLAN:???The risks/benefits/alternatives and personal involved for the planned?c/-s and bilateral salpingectomy?were reviewed with the patient. Her questions were answered to her satisfaction and she desires to proceed. ?Consent was signed. ?I reviewed with her postop instructions and expectations. ? ? I have reviewed and updated past medical and surgical history, medications and allergies. Sr. and physical was completed in my office on 03/02/2019. Tyra Rosen M.D.
[2019-03-09] MEDS: 0.9% Saline Lock 10 ML Syringe IV (20:04)
[2019-03-09] MEDS: Docusate Sodium 100 MG Capsule PO (22:11)
[2019-03-09] MEDS: Senna/Docusate Sodium 1 Tablet PO (22:11)
[2019-03-10] VITALS (8 sets, daily range): BP systolic 115–133; BP diastolic 69–90; PULSE 73–94; RESP 16–18; TEMP 36.5–36.8; O2SAT 96–98
--- NOTE | 2019-03-10 01:14 | NURSING ---
Dr Byrd updated on patient oxygen occasionally dropping below 94% when sleeping. Bleeding appropriate and lungs clear to ausculation. Order received to apply nasal cannula 2L if continues to desaturate.
[2019-03-10] MEDS: Ketorolac 30 MG/ML Syringe IV ×2 (02:31→07:55)
[2019-03-10] MEDS: 0.9% Saline Lock 10 ML Syringe IV ×2 (02:31→07:55)
--- NOTE | 2019-03-10 03:00 | NURSING ---
Addendum entered by Amna Loya RN 03/10/19 03:08: Correction: Dr. Jensen notified. Original Note: Patient pulse ox intermittently ranging from low 90s to 87 while sleeping. Desaturation occurs only for a second or two. Dr. Ceballos notified. Obtained verbal order for 2 L of oxygen to maintain pulse ox. 2 L of oxygen applied. Patient denies shortness of breath. Lung sounds clear. Will continue to monitor.
[2019-03-10] MEDS: Enoxaparin 40 MG/0.4 ML Syringe SC (06:04)
[2019-03-10 06:15] LABS: Hematocrit 29.7 % (37-47); Hemoglobin 10.4 g/dL (12.0-15.0); Mean Corpuscular Hgb 32.7 pg (27.0-32.0); Mean Corpuscular Volume 93.4 fL (81-99); Mean Platelet Vol. 10.1 fl (6.2-12.0); Platelet Count 231 K/mm3 (150-450); RBC Distribution Width CV 13.2 % (11.6-14.6); RBC Distribution Width SD 45.1 fl (35.1-43.9); Red Blood Count 3.18 M/mm3 (4.2-5.4); White Blood Count 12.6 K/mm3 (4.4-11.0)
--- NOTE | 2019-03-10 08:13 | PCM.PN.OB ---
Subjective: No complaints - Physical Exam General: Alert, Oriented x3 Abdomen: Soft, Non Tender, Non-Distended - ff mid & below umb; inc - bandage c/d/i Extremities: No Calf Tenderness Vital Signs Temp Pulse Resp BP Pulse Ox 98 F 94 16 115/72 97 03/10/19 04:03 03/10/19 06:35 03/10/19 06:35 03/10/19 04:03 03/10/19 06:35 Oxygen Flow Rate (L/min) 2 Oxygen Delivery Method Room Air Weight: 230 lb 6.4 oz Body Mass Index (BMI) 37.1 Intake and Output for Last 24 Hours 03/08/19 03/09/19 03/10/19 23:59 23:59 23:59 Intake Total 4533.17 / 4533.17 Output Total 650 / 650 800 / 800 Balance 3883.17 / 3883.17 -800 / -800 Laboratory Tests Past 24 Hrs 03/10/19 06:05 WBC 12.6 H RBC 3.18 L Hgb 10.4 L Hct 29.7 L MCV 93.4 MCH 32.7 H MCHC 35.0 RDW Std Deviation 45.1 H RDW Coeff of Judi 13.2 Plt Count 231 MPV 10.1 Medical Necessity - Tobacco Use Smoking Status: Heavy Smoker (>10/day) Assessment/Plan A&P: POD#1 Heme - CBC reviewed IF - AF, no signs infection GI - ADAT Routine care
[2019-03-10] MEDS: Acetaminophen 500 MG Tablet 1000 MG PO ×2 (09:09→22:06)
[2019-03-10] MEDS: Senna/Docusate Sodium 1 Tablet PO ×2 (09:10→21:52)
[2019-03-10] MEDS: Naproxen 250 MG Tablet PO ×2 (13:51→22:05)
[2019-03-10] MEDS: oxyCODONE 5 MG Tablet PO ×2 (15:46→20:31)
[2019-03-10 15:52] LABS: Pathology Specimen OB SEE PATHOLOGY REPORT
--- NOTE | 2019-03-10 20:17 | NURSING ---
Assessed patient's incision site and noted a moderate amount of sanguineous drainage. 75% of silver mepilex covered with drainage. Silver mepilex removed and new silver mepilex applied. Incision without redness, edema, or other signs of infection. Incision not actively bleeding. Will continue to monitor.
[2019-03-10] MEDS: Docusate Sodium 100 MG Capsule PO (21:52)
--- NOTE | 2019-03-11 00:24 | NURSING ---
Continuous pulse ox on while patient resting with eyes closed due to desaturations while resting with eyes closed last night. 2 L of oxygen applied via nasal canula due to desaturations below 90 while patient is resting with eyes closed. Pulse ox at 97 now. Patient resting with eyes closed. Call light in reach.
[2019-03-11 02:08] VITALS: BP 118/86; PULSE 69; RESP 18; TEMP 36.3; O2SAT 96
[2019-03-11] MEDS: oxyCODONE 5 MG Tablet PO ×3 (02:32→21:53)
--- NOTE | 2019-03-11 02:37 | NURSING ---
Addendum entered by Amna Loya RN 03/11/19 02:46: Dr. Ceballos also notified of patient's desaturations while resting with eyes closed. Dr. Ceballos aware of the patient's need of 2 L of oxygen to maintain patient's pulse ox while the patient is resting with eyes closed. Pulse ox has remained stable. Original Note: Assessed patient's mepilex dressing at 2200. Minimal drainage noted and circled. Reassessed at 0230. 50% of the dressing saturated with sanguineous drainage. Drainage circled. Dr. Ceballos notified. Verbal order to apply ABD pads and a pressure dressing. Applied ABD pads and pressure dressing. Patient tolerated well. No redness, edema, or signs of infection noted. Dr. Ceballos reports that she will be in in the morning to assess. Will continue to monitor.
--- NOTE | 2019-03-11 04:47 | NURSING ---
Pressure dressing dry and intact. No drainage on pressure dressing.
--- NOTE | 2019-03-11 06:36 | NURSING ---
Charted incorrectly. Urinary catheter intervention should be inactive. Urinary catheter removed 03/09 at 1950.
[2019-03-11] MEDS: Enoxaparin 40 MG/0.4 ML Syringe SC (06:40)
--- NOTE | 2019-03-11 06:48 | NURSING ---
Pressure dressing still clear of drainage.
--- NOTE | 2019-03-11 06:52 | NURSING ---
This RN reviewed and agree with Odilia griffiths
[2019-03-11] MEDS: Naproxen 250 MG Tablet PO ×2 (07:05→20:39)
[2019-03-11 08:00] VITALS: BP 141/88; PULSE 85; RESP 16; TEMP 36.6
--- NOTE | 2019-03-11 08:40 | PCM.PN.OB ---
Subjective: Pain well controlled. Average lochia. Had some bleeding through her first dressing, pressure dressing on now is clean and dry. Past flatus, no bowel movement yet. Tolerating regular diet - Physical Exam General: Alert, Cooperative, No apparent distress Abdomen: Soft, Non-Distended, Tender - Appropriately Extremities: Edema - 1+ Skin: Incision - Pressure bandage is clean dry and intact Vital Signs Temp Pulse Resp BP Pulse Ox 97.4 F L 69 18 118/86 H 96 03/11/19 02:08 03/11/19 02:08 03/11/19 02:08 03/11/19 02:08 03/11/19 02:08 Oxygen Flow Rate (L/min) 2 Oxygen Delivery Method Room Air Weight: 104.508 kg Body Mass Index (BMI) 37.1 Intake and Output for Last 24 Hours 03/09/19 03/10/19 03/11/19 23:59 23:59 23:59 Intake Total 4533.17 / 4533.17 Output Total 650 / 650 800 / 800 Balance 3883.17 / 3883.17 -800 / -800 Medical Necessity - Tobacco Use Smoking Status: Heavy Smoker (>10/day) Assessment/Plan Postoperative day #2 status post repeat with bilateral salpingectomy. Patient is doing well. Had some bleeding through her first bandage and the second 1 became partially saturated so pressure dressing was placed. This looks stable and dry today. We will recheck a CBC today. Remove pressure dressing tomorrow. Infant is doing well, likely discharge home tomorrow.
[2019-03-11] MEDS: Senna/Docusate Sodium 1 Tablet PO (08:53)
[2019-03-11 14:00] VITALS: BP 150/76; PULSE 79; RESP 18; TEMP 36.3
[2019-03-11 14:25] LABS: Hematocrit 29.2 % (37-47); Mean Corp Hgb Conc 34.2 g/dL (32-36); Mean Corpuscular Hgb 32.4 pg (27.0-32.0); Mean Corpuscular Volume 94.5 fL (81-99); Mean Platelet Vol. 10.5 fl (6.2-12.0); Platelet Count 266 K/mm3 (150-450); RBC Distribution Width CV 13.4 % (11.6-14.6); RBC Distribution Width SD 46.1 fl (35.1-43.9); Red Blood Count 3.09 M/mm3 (4.2-5.4); White Blood Count 10.1 K/mm3 (4.4-11.0)
[2019-03-11 20:51] VITALS: BP 145/80; PULSE 74; RESP 16; TEMP 36.9
[2019-03-11] MEDS: Docusate Sodium 100 MG Capsule PO (21:53)
[2019-03-11 21:56] VITALS: BP 145/85; PULSE 75
[2019-03-12 02:28] VITALS: BP 126/81; PULSE 68; RESP 18; TEMP 36.4; O2SAT 97
[2019-03-12] MEDS: Enoxaparin 40 MG/0.4 ML Syringe SC (06:20)
[2019-03-12 09:35] VITALS: BP 135/81; PULSE 80; RESP 17; TEMP 36.7; O2SAT 98
--- NOTE | 2019-03-12 09:52 | PCM.DCCSEC ---
Discharge Diet: No Restrictions Discharge Activity: Return to Normal Activity, May Not Drive - for 2 weeks, May not drive while taking narcotic pain medications., May Shower, May Take a Tub Bath - in 7 days. May resume sexual activity in: 4-6 weeks Lifting Restrictions: 20 pounds Additional Activity Instructions:: Nothing in the vagina for 4-6 weeks. You may return to work/school in 6 weeks. Call your doctor if your incision/area has: Continuous Slow Oozing, Sudden Increased Bleeding, Increased Pain/ Swelling, Increased Redness, Foul Smelling Discharge Call your doctor if you observe: Fever of 101 or Higher, Using more than one pad per hour - for 2 hours Suture Line Care: Avoid Pulling/Pushing, Avoid Pinching/Bending Cleanse incision/area with: Keep Dressing Clean & Dry Additional Instructions: If you experience any of the following, contact your healthcare provider. Bleeding that soaks a pad every hour for 2 hours Fever 100.4 or higher Unrelieved incision or abdominal pain Swelling, redness, discharge or bleeding from your incision or episiotomy site Your incision begins to separate Problems urinating (including inability to urinate or burning while urinating). Visual changes Severe headache Flu-like symptoms Pain or redness in one of both of your breasts Pain, warmth, tenderness or swelling in your legs, especially the calf area Frequent nausea and vomiting Symptoms of depression or anxiety If you experience any of the following, call 911 or go to the nearest Emergency Room. Chest pain Problems breathing Seizure activity Partial or complete paralysis of a body part, slurred speech, weakness or drooping of the face, or a sudden inability to walk or hold your balance Allergies/Adverse Reactions: Allergies No Known Allergies Allergy (Verified 03/09/19 06:05) Medications to take at Discharge Vits [Prenatabs FA ] 1 tablet PO DAILY 01/04/18 Ibuprofen [Motrin] 600 mg PO Q6H PRN #60 tab 03/12/19 Oxycodone HCl/Acetaminophen [Percocet 5-325] 1 tablet PO Q8 PRN 5 Days #12 tablet 03/12/19 The following prescriptions were given: Ibuprofen [Motrin] 600 mg PO Q6H PRN #60 tab PRN Reason: Pain Transmission Status: Pending to [id number] Oxycodone HCl/Acetaminophen [Percocet 5-325] 1 tablet PO Q8 PRN 5 Days #12 tablet PRN Reason: Moderate-Severe pain Transmission Status: Sent to [id number] Follow-Up: Call to make an appointment with your doctor for an incision check in 1-2 weeks. You will also need a 6 week post- follow up appointment. Test results from this visit will be discussed in further detail at your follow-up appointment, if applicable. Please Follow Up With: Tyra Rosen MD - Call to make an appointment for an incision check in 1-2 [phone] When: You will need a post check in 6 weeks. Primary Care Physician: Care Physician,No Primary [Primary Care Provider] -
--- NOTE | 2019-03-12 09:53 | PCM.PN.OB ---
Subjective: Pain well controlled, average lochia. Tolerating regular diet. Has had a bowel movement. Denies headache, visual changes or epigastric pain. Edema has not worsened. - Physical Exam General: Alert, Cooperative, No apparent distress Abdomen: Soft, Non-Distended, Tender - Mildly Skin: Incision - Was removed, incision is clean dry and intact Neurological: - - No clonus, 2+ DTRs, 1+ edema Vital Signs Temp Pulse Resp BP Pulse Ox 98.1 F 80 17 135/81 H 98 03/12/19 09:35 03/12/19 09:35 03/12/19 09:35 03/12/19 09:35 03/12/19 09:35 Oxygen Flow Rate (L/min) 2 Oxygen Delivery Method Room Air Weight: 104.508 kg Body Mass Index (BMI) 37.1 Intake and Output for Last 24 Hours 03/10/19 03/11/19 03/12/19 23:59 23:59 23:59 Output Total 800 / 800 Balance -800 / -800 Laboratory Tests Past 24 Hrs 03/11/19 13:50 WBC 10.1 RBC 3.09 L Hgb 10.0 L Hct 29.2 L MCV 94.5 MCH 32.4 H MCHC 34.2 RDW Std Deviation 46.1 H RDW Coeff of Judi 13.4 Plt Count 266 MPV 10.5 Medical Necessity - Tobacco Use Smoking Status: Heavy Smoker (>10/day) Assessment/Plan Postoperative day #3 status post repeat bilateral salpingectomy for sterilization. She had some bleeding from her incision on postoperative day #1, it has stabilized. The pressure dressing was removed today and there is no sanguinous drainage. The incision is intact and healing well. Blood pressures have trended up, and is been mildly elevated. Will start on labetalol 100 mg p.o. twice daily and have her follow-up in 1 week for blood pressure check. Call or return for signs or symptoms of preeclampsia. Patient agrees with plan. Charge home with routine instructions and prescriptions.
--- NOTE | 2019-03-12 09:55 | PCM.DC.SUM ---
Discharge Date and Diagnosis Date of Admission: 03/09/19 Date of Discharge: 03/12/19 Hospital Course and Treatment Operations: - - Repeat low transverse section via Pfannenstiel skin incision bilateral salpingectomy performed on 03-09-19 Summary of Care Provided: The patient is a 28 year old at 39 weeks for repeat and bilateral salpingectomy for request of sterilization. Surgery was performed without difficulty. On postoperative day #1 she had some oozing from her incision and pressing dressing was placed. She had no significant further bleeding. She had mild acute blood loss anemia appropriate for blood loss during her . By postoperative day #3 she was ambulating, urinating tolerating regular diet without difficulty. She had some mildly elevated blood pressures but no signs or symptoms of preeclampsia. She was discharged home with routine instructions and prescriptions and a prescription for labetalol 100 mg p.o. twice daily and she is to follow-up in our office within 1 week or as needed for symptoms of preeclampsia. [] - Physical Exam Vital Signs Temp Pulse Resp BP Pulse Ox 98.1 F 80 17 135/81 H 98 03/12/19 09:35 03/12/19 09:35 03/12/19 09:35 03/12/19 09:35 03/12/19 09:35 Oxygen Flow Rate (L/min) 2 Oxygen Delivery Method Room Air Weight: 104.508 kg Body Mass Index (BMI) 37.1 Intake and Output for Last 24 Hours 03/10/19 03/11/19 03/12/19 23:59 23:59 23:59 Output Total 800 / 800 Balance -800 / -800 Laboratory Tests Past 24 Hrs 03/11/19 13:50 WBC 10.1 RBC 3.09 L Hgb 10.0 L Hct 29.2 L MCV 94.5 MCH 32.4 H MCHC 34.2 RDW Std Deviation 46.1 H RDW Coeff of Judi 13.4 Plt Count 266 MPV 10.5 Discharge Diet: No Restrictions Discharge Activity: Return to Normal Activity, May Not Drive - for 2 weeks, May not drive while taking narcotic pain medications., May Shower, May Take a Tub Bath - in 7 days. May resume sexual activity in: 4-6 weeks Additional Activity Instructions:: Nothing in the vagina for 4-6 weeks. You may return to work/school in 6 weeks. Call your doctor if your incision/area has: Continuous Slow Oozing, Sudden Increased Bleeding, Increased Pain/ Swelling, Increased Redness, Foul Smelling Discharge Call your doctor if you observe: Fever of 101 or Higher, Using more than one pad per hour - for 2 hours Suture Line Care: Avoid Pulling/Pushing, Avoid Pinching/Bending Cleanse incision/area with: Keep Dressing Clean & Dry Home Medications: Medications to take at Discharge Vits [Prenatabs FA ] 1 tablet PO DAILY 01/04/18 Ibuprofen [Motrin] 600 mg PO Q6H PRN #60 tab 03/12/19 Labetalol [Trandate (Beta Paul)] 100 mg PO BID #60 tab 03/12/19 Oxycodone HCl/Acetaminophen [Percocet 5-325] 1 tab PO Q8 PRN 5 Days #12 tab 03/12/19 Following Prescrptions Were Given to Patient: Ibuprofen [Motrin] 600 mg PO Q6H PRN #60 tab PRN Reason: Pain Transmission Status: Received by [id number] Oxycodone HCl/Acetaminophen [Percocet 5-325] 1 tab PO Q8 PRN 5 Days #12 tab PRN Reason: Moderate-Severe pain Transmission Status: Received by [facility] Labetalol [Trandate (Beta Paul)] 100 mg PO BID #60 tab Transmission Status: Received by [id number] Primary Care Physician: Care Physician,No Primary [Primary Care Provider] - Please Follow Up With: Tyra Rosen MD - Call to make an appointment for an incision check in 1-2 [phone] When: You will need a post check in 6 weeks. Medical Necessity - Tobacco Use Smoking Status: Heavy Smoker (>10/day) Meaningful Use Info Meaningful Use Diagnoses (Choose all that apply): None applicable
[2019-03-12] MEDS: Docusate Sodium 100 MG Capsule PO (10:20)
[2019-03-12] MEDS: oxyCODONE 5 MG Tablet PO (10:20)
[2019-03-12 11:00] VITALS: BP 130/80; PULSE 79; RESP 17; TEMP 36.7; O2SAT 98
== END 2019-03-12 10:50 | disposition home or self-care (01) | DRG 784 ==
PROVIDERS: Admitting Provider Obstetrics & Gynecology; Referring Provider Obstetrics & Gynecology; Visit Provider Obstetrics & Gynecology
PROC: 10D00Z1 Extraction of Products of Conception, Low, Open Approach (ICD-10-PCS; CPT 59514; principal; 2019-03-09 07:15)
DX: O34.211 Maternal care for low transverse scar from previous cesarean delivery (principal); D62 Acute posthemorrhagic anemia; O99.02 Anemia complicating childbirth; N85.8 Other specified noninflammatory disorders of uterus; O69.81X0 Labor and delivery complicated by cord around neck, without compression, not applicable or unspecified; Z3A.39 39 weeks gestation of pregnancy; Z37.0 Single live birth; Z30.2 Encounter for sterilization; F17.210 Nicotine dependence, cigarettes, uncomplicated; O99.334 Smoking (tobacco) complicating childbirth; Z82.3 Family history of stroke; Z80.1 Family history of malignant neoplasm of trachea, bronchus and lung; Z80.0 Family history of malignant neoplasm of digestive organs; Z82.49 Family history of ischemic heart disease and other diseases of the circulatory system
CPT/HCPCS: 85025; 85027; 86850; 86900; 86901; 88302; 99218; J7120; A4216; G0378; J2405